=== PATIENT | male | born 1955 | race Caucasian/White ===

== ENCOUNTER → 2018-09-20 | Day surgery (SDC) | payer OTHER ==
[~2018-09-20] MED LIST: AMLO5TAB4 PO; ASPI-630 PO; ATOR40TA PO; BUDE10.2 IH; IV RINGERS,LACTATED 1000ML 1,000 ML IV SCH; LIDOCAINE 1% PF 2 ML VIAL. ID PRN; LOSA1TAB25 PO; MIDAZOLAM HCL/PF 2 MG/2 ML VIAL. IV PRN; PROPOFOL 40 ML IV ONE; PROVENTIL HFA6.7 GM IH; fentaNYL PF VIAL 100 MCG/2 ML VIAL IV PRN
--- NOTE | 2018-09-20 07:56 | CONS ---
DATE OF CONSULTATION: REFERRING PHYSICIAN: Martine Hannah REASON FOR CONSULTATION: Colorectal screening. HISTORY OF PRESENT ILLNESS: A 63-year-old male whose past medical history is significant for hypertension, hyperlipidemia and status post hernia surgery is seen for interval colon exam. Exam 10 years ago was unrevealing for polyps or cancers. Denies any change in bowel habits, diarrhea or constipation. No melena or hematochezia. Weight and appetite are stable, is otherwise without additional complaints. PAST MEDICAL HISTORY: Hypertension, hyperlipidemia, history of asthma and status post bilateral hernia repairs. FAMILY HISTORY: Significant for organic heart disease and heart attack and hypertension with his father. SOCIAL HISTORY: He is nonsmoker and nondrinker. REVIEW OF SYSTEMS: As per records. PHYSICAL EXAMINATION: GENERAL: Reveals a well-nourished, well-developed male. VITAL SIGNS: Temperature is 98, pulse 48, respiratory rate 20. HEENT: Reveals normocephalic and atraumatic head. Pupils and extraocular muscles are not tested. Sclerae anicteric. NECK: Supple. LUNGS: Clear. CARDIOVASCULAR: Reveals an S1, S2 without S3, S4 or appreciable murmur. ABDOMEN: Reveals soft abdomen, normal bowel sounds without appreciable hepatosplenomegaly. EXTREMITIES: Reveals no cyanosis, clubbing or edema. IMPRESSION: Colorectal screening is warranted at this time. Risks and benefits of the procedure including risk of hemorrhage and perforation have been discussed with the patient who is willing to proceed. I would like to thank Martine Hannah for allowing us to consult and participate in the patient's care. NORMAN WHALEN MD DR: EARL/catherine JOB#: [id number] / [id number] Martine Stover
[2018-09-20 08:27] VITALS: BP 154/78
== END | disposition home or self-care (01) ==
LOC: SURG 06:45
PROVIDERS: ATTEND Internal Medicine Gastroenterology
DX: Z12.11 Encounter for screening for malignant neoplasm of colon (principal); K64.0 First degree hemorrhoids; I10 Essential (primary) hypertension; E78.5 Hyperlipidemia, unspecified; J45.909 Unspecified asthma, uncomplicated; Z98.890 Other specified postprocedural states; Z82.49 Family history of ischemic heart disease and other diseases of the circulatory system
CPT/HCPCS: 45378; J2704